=== PATIENT | female | born 1990 | race African-American/Black ===

== ENCOUNTER 2017-01-01 22:33 | Emergency (ER) | payer MEDICAID ==
[~2017-01-01] VITALS: Ht 165.1 cm; Wt 104.0 kg
[~2017-01-01 22:33] MED LIST: [UNRECOGNIZED DRUG - REMARK]
[2017-01-01 23:35] VITALS: BP 126/75
[2017-01-02] MEDS ORDERED: AZITHROMYCIN 500 MG TABLET PO SCH (03:30)
[2017-01-02] MEDS ORDERED: CEFTRIAXONE SODIUM 250 MG/VIAL IM ONE (03:30)
[2017-01-02] MEDS ORDERED: LIDOCAINE HCL 1% 20ML VIAL (Pyxis) INJ INFIL ONE (03:45)
[2017-01-02 05:00] LABS: CLARITY URINE CLOUDY (CLEAR); COLOR URINE YELLOW (YELLOW); GLUCOSE URINE NEGATIVE (NEGATIVE); KETONES URINE TRACE (NEGATIVE); LEUKOCYTE ESTERASE URINE 3+ (NEGATIVE); NITRITE URINE NEGATIVE (NEGATIVE); OCCULT BLOOD URINE NEGATIVE (NEGATIVE); PROTEIN URINE TRACE (NEGATIVE); SPECIFIC GRAVITY URINE 1.023 (1.005-1.030)
[2017-01-07 07:12] LABS: CHLAMYDIA TRACHOMATIS NAA Negative (Negative); NEISSERIA GONORRHOEAE NAA Negative (Negative)
== END 2017-01-02 03:44 | disposition home or self-care (01) ==
LOC: ER 23:30
DX: N76.0 Acute vaginitis (principal); Z87.891 Personal history of nicotine dependence
CPT/HCPCS: 81001; 87491; 87591; 96372; 99284; J0696; J3490; Z7610

== ENCOUNTER 2018-05-19 21:22 | Emergency (ER) | payer MEDICAID ==
[~2018-05-19] VITALS: Ht 165.1 cm; Wt 100.0 kg
[2018-05-19] MEDS ORDERED: SODIUM CHLORIDE 0.9% 1,000 ML IV ONE (23:45)
[2018-05-19] MEDS ORDERED: MECLIZINE 25MG TABLET PO ONE (23:45)
[2018-05-20 00:06] LABS: CLARITY URINE CLOUDY (CLEAR); COLOR URINE YELLOW (YELLOW); KETONES URINE TRACE (NEGATIVE); LEUKOCYTE ESTERASE URINE 2+ (NEGATIVE); NITRITE URINE NEGATIVE (NEGATIVE); OCCULT BLOOD URINE 1+ (NEGATIVE); PH URINE 6.5 (4.5-8.0); PROTEIN URINE TRACE (NEGATIVE); SPECIFIC GRAVITY URINE 1.033 (1.005-1.030)
[2018-05-20 00:09] LABS: *AMPHETAMINES SCREEN URINE NEGATIVE (NEGATIVE); *BARBITURATES SCREEN URINE NEGATIVE (NEGATIVE); *BENZODIAZEPINES SCREEN URINE NEGATIVE (NEGATIVE); *COCAINE SCREEN URINE NEGATIVE (NEGATIVE); METHADONE URINE SCREEN NEGATIVE (NEGATIVE); OPIATES URINE SCREEN NEGATIVE (NEGATIVE)
[2018-05-20 00:10] LABS: PHENCYCLIDINE URINE SCREEN NEGATIVE (NEGATIVE)
[2018-05-20 00:14] LABS: CANNABINOID URINE SCREEN PRESUMTIVE POSITIVE (NEGATIVE)
[2018-05-20] MEDS ORDERED: CEFTRIAXONE SODIUM 250 MG/VIAL IM ONE (02:45)
[2018-05-20] MEDS ORDERED: ONDANSETRON 4MG ODT PO ONE (02:45)
[2018-05-20] MEDS ORDERED: AZITHROMYCIN 500 MG TABLET PO ONE (02:45)
[2018-05-20] MEDS ORDERED: LIDOCAINE HCL 1% 20ML VIAL (Pyxis) INJ INFIL ONE (03:15)
[2018-05-20 03:16] VITALS: BP 119/73
== END 2018-05-20 03:35 | disposition home or self-care (01) ==
LOC: ER 21:22
DX: N39.0 Urinary tract infection, site not specified (principal); F17.200 Nicotine dependence, unspecified, uncomplicated
CPT/HCPCS: 36415; 80305; 81003; 81025; 87086; 96372; 99284; G0482; J0696; J3490; J7030; Q0162; J8597

== ENCOUNTER 2021-07-14 01:09 | Emergency (ER) | payer MEDICAID ==
[~2021-07-14] VITALS: Ht 165.1 cm; Wt 100.0 kg
[2021-07-14 03:35] LABS: CLARITY URINE CLEAR (CLEAR); COLOR URINE YELLOW (YELLOW); KETONES URINE TRACE (NEGATIVE); LEUKOCYTE ESTERASE URINE 2+ (NEGATIVE); NITRITE URINE NEGATIVE (NEGATIVE); OCCULT BLOOD URINE 2+ (NEGATIVE); PROTEIN URINE 1+ (NEGATIVE); SPECIFIC GRAVITY URINE 1.028 (1.005-1.030)
[2021-07-14] MEDS ORDERED: NITR-87 MT (04:07)
[2021-07-14] MEDS ORDERED: PHEN95TA25 MT (04:07)
[2021-07-14 04:31] VITALS: BP 128/67
== END 2021-07-14 04:33 | disposition home or self-care (01) ==
LOC: ER 01:09
DX: N39.0 Urinary tract infection, site not specified (principal); Z98.890 Other specified postprocedural states
CPT/HCPCS: 81003; 81025; 99283